=== PATIENT | male | born 1980 | race Caucasian/White ===

== ENCOUNTER 2016-11-13 19:50 | Emergency (ER) | payer BC, OTHER ==
[2016-11-13] MEDS ORDERED: OXYCODONE/ACETAMINOPHEN 5/325 MG TABLET ONE (21:03)
--- NOTE | 2016-11-14 07:50 | RAD ---
Exam: Three-view right hand COMPARISON: None INDICATION: Deformity of fifth digit. FINDINGS: PA, lateral and oblique views of the right hand were obtained. There is a dislocation at the PIP joint of the fifth finger; the middle phalanx is dislocated dorsally, and is located along the ulnar aspect of the proximal phalanx. There is a 3 mm bone fragment which located just proximal to the middle phalanx which appears fairly well-corticated. A well-corticated bone fragment also projects along the volar aspect of the middle phalanx of the fourth finger, likely related to remote fracture in this location. Bones otherwise unremarkable. IMPRESSION: 1. Dislocation at the PIP joint of the fifth finger as above. Bone fragment is located in this vicinity which appears fairly well-corticated, query chronicity. 2. Old fracture along the volar aspect of the middle phalanx of the fourth finger.
== END 2016-11-13 21:08 | disposition home or self-care (01) ==
LOC: ED 19:50
DX: S63.286A Dislocation of proximal interphalangeal joint of right little finger, initial encounter (principal); Y93.67 Activity, basketball; Y92.310 Basketball court as the place of occurrence of the external cause
CPT/HCPCS: 73130; 99283 ×2; A9270